=== PATIENT | female | born 1945 | race Caucasian/White ===

== ENCOUNTER 2019-01-31 12:58 | Emergency (ER) | payer MEDICAID | END 2019-01-31 14:48 | disposition home or self-care (01) | LOC: E/R 12:58 | DX: R00.2 Palpitations (principal); Z85.3 Personal history of malignant neoplasm of breast | CPT/HCPCS: 93005; 99283-25 ==

== ENCOUNTER 2019-02-01 06:33 | Inpatient (IN) | payer MEDICAID ==
[2019-01-28 16:47] LABS: ADD MAN DIFF? NO
[2019-01-28 16:50] LABS: WHITE BLOOD COUNT 5.9 10^3/ul (4.8-10.8)
[2019-01-28 16:50] LABS: BASOPHILS % 0.5 % (0.0-2.0); EOSINOPHILS % 0.7 % (0.0-7.0); HEMATOCRIT 40.6 % (37.0-47.0); HEMOGLOBIN 12.8 g/dl (12.0-16.0); LYMPHOCYTES # 1.8 10^3/ul (0.8-2.9); LYMPHOCYTES % 30.9 % (15.0-51.0); MEAN CORPUSCULAR HEMOGLOBIN 28.8 pg (29.0-33.0); MEAN CORPUSCULAR HGB CONC 31.5 g/dl (32.0-37.0); MEAN CORPUSCULAR VOLUME 91.2 fl (82.0-101.0); MEAN PLATELET VOLUME 10.1 fl (7.4-10.4); MONOCYTE # 0.6 10^3/ul (0.3-0.9); MONOCYTES % 9.3 % (0.0-11.0); NEUTROPHIL # 3.5 10^3/ul (1.6-7.5); NEUTROPHILS % 58.4 % (39.0-77.0); PLATELET COUNT 251 10^3/UL (140-415); RED BLOOD COUNT 4.45 10^6/ul (4.20-5.40); RED CELL DISTRIBUTION WIDTH 13.8 % (11.5-14.5)
[2019-01-28 17:07] LABS: ALANINE AMINOTRANSFERASE 15 IU/L (13-69); ALBUMIN 4.3 g/dl (3.3-4.9); ALBUMIN/GLOBULIN RATIO 1.22; ALKALINE PHOSPHATASE 75 IU/L (42-121); ANION GAP 11 (5-13); ASPARTATE AMINO TRANSFERASE 27 IU/L (15-46); BILIRUBIN,INDIRECT 0.6 mg/dl (0-1.1); BILIRUBIN,TOTAL 0.6 mg/dl (0.2-1.3); BLOOD UREA NITROGEN 18 mg/dl (7-20); CALCIUM 9.1 mg/dl (8.4-10.2); CARBON DIOXIDE 21 mmol/L (21-31); CHLORIDE 110 mmol/L (97-110); CREATININE 0.77 mg/dl (0.44-1.00); GLUCOSE 99 mg/dl (70-220); POTASSIUM 4.2 mmol/L (3.5-5.1); SODIUM 142 mmol/L (135-144); TOTAL PROTEIN 7.8 g/dl (6.1-8.1)
[2019-01-28 17:09] LABS: INR 0.97
[2019-01-28 17:47] LABS: PARTIAL THROMBOPLASTIN TIME 37.6 Sec (23.0-35.0)
[2019-02-01] MEDS: CEFAZOLIN 2 GM/50 ML (PMX) 50 ML IVPB (06:00)
[2019-02-01] MEDS: ACETAMINOPHEN 500 MG TAB PO (07:30)
[2019-02-01] MEDS ORDERED: DESFLURANE 15 MIN (08:00)
[2019-02-01] MEDS ORDERED: MIDAZOLAM 1 MG/ML 2 ML INJ (08:20)
[2019-02-01] MEDS ORDERED: FAMOTIDINE 20 MG INJ (08:20)
[2019-02-01] MEDS ORDERED: PROPOFOL 40 ML (08:20)
[2019-02-01] MEDS ORDERED: ONDANSETRON 4 MG INJ (08:22)
[2019-02-01] MEDS ORDERED: FENTAnyl 50 MCG/ML VIAL ×2 (08:22→11:18)
[2019-02-01] MEDS ORDERED: CEFAZOLIN 1 GM INJ (08:22)
[2019-02-01] MEDS ORDERED: DIPHENHYDRAMINE 50 MG INJ IV (10:00)
[2019-02-01] MEDS ORDERED: HYDROmorphONE 1 MG/5 ML IV SYRINGE IV ×2 (10:00)
[2019-02-01] MEDS ORDERED: morphine 2 MG INJ IV ×2 (10:00)
[2019-02-01] MEDS ORDERED: LABETALOL HCL 20MG INJ IV (10:00)
[2019-02-01] MEDS ORDERED: OXYCODONE/ACETAMINOPHEN (5/325) TAB PO ×2 (10:00)
[2019-02-01] MEDS ORDERED: MEPERIDINE 25 MG INJ IV (10:00)
[2019-02-01] MEDS ORDERED: ALBUTEROL 0.083% (NEB) 2.5 MG/3 ML AMP HHN (10:00)
[2019-02-01] MEDS: ISOSULFAN BLUE 1% 5 ML INJ SC (10:12)
[2019-02-01] MEDS ORDERED: ONDANSETRON 4 MG INJ IV (11:00)
[2019-02-01] MEDS ORDERED: ACETAMINOPHEN 1000MG/100ML IV 100 ML IVPB (11:00)
[2019-02-01] MEDS ORDERED: PHENYLephrine (100 MCG/ML) 10ML SYG (11:13)
[2019-02-01] MEDS ORDERED: EPHEDrine 25 MG/5 ML SYG (11:13)
[2019-02-01] MEDS ORDERED: NEOSTIGMINE 3 MG/3 ML SYRINGE (11:21)
[2019-02-01] MEDS ORDERED: GLYCOPYRROLATE 0.4 MG INJ (11:21)
[2019-02-01] MEDS: FENTAnyl 50 MCG/ML VIAL IV ×3 (12:04→12:30)
[2019-02-01] MEDS: ONDANSETRON 4 MG INJ IV (12:04)
[2019-02-01] MEDS: HYDROmorphONE 1 MG/5 ML IV SYRINGE IV (13:11)
[2019-02-01] MEDS: D5W-0.45 NACL + KCL 20 MEQ 1,000 ML IV ×2 (15:36→18:39)
[2019-02-01] MEDS: morphine 2 MG INJ IV (15:43)
[2019-02-01] MEDS: HYDROCORTISONE 100 MG INJ IV (17:54)
[2019-02-01] MEDS ORDERED: METOCLOPRAMIDE 10 MG INJ IV (18:00)
[2019-02-01] MEDS: DIPHENHYDRAMINE 50 MG INJ IV (18:11)
[2019-02-02] MEDS: D5W-0.45 NACL + KCL 20 MEQ 1,000 ML IV ×3 (00:39→17:49)
[2019-02-02] MEDS: PANTOPRAZOLE (EC) 40 MG TAB PO (06:03)
[2019-02-02 08:03] LABS: ADD MAN DIFF? NO
[2019-02-02 08:08] LABS: BASOPHILS % 0.1 % (0.0-2.0); HEMATOCRIT 37.5 % (37.0-47.0); HEMOGLOBIN 11.8 g/dl (12.0-16.0); LYMPHOCYTES # 1.4 10^3/ul (0.8-2.9); LYMPHOCYTES % 20.8 % (15.0-51.0); MEAN CORPUSCULAR HEMOGLOBIN 28.9 pg (29.0-33.0); MEAN CORPUSCULAR HGB CONC 31.5 g/dl (32.0-37.0); MEAN CORPUSCULAR VOLUME 91.7 fl (82.0-101.0); MEAN PLATELET VOLUME 10.2 fl (7.4-10.4); MONOCYTE # 0.4 10^3/ul (0.3-0.9); MONOCYTES % 6.1 % (0.0-11.0); NEUTROPHILS % 72.7 % (39.0-77.0); PLATELET COUNT 290 10^3/UL (140-415); RED BLOOD COUNT 4.09 10^6/ul (4.20-5.40)
[2019-02-02 08:08] LABS: WHITE BLOOD COUNT 6.9 10^3/ul (4.8-10.8)
[2019-02-02 08:30] LABS: ANION GAP 6 (5-13); BLOOD UREA NITROGEN 10 mg/dl (7-20); CALCIUM 8.7 mg/dl (8.4-10.2); CARBON DIOXIDE 25 mmol/L (21-31); CHLORIDE 111 mmol/L (97-110); CREATININE 0.62 mg/dl (0.44-1.00); GLUCOSE 113 mg/dl (70-220); POTASSIUM 4.4 mmol/L (3.5-5.1); SODIUM 142 mmol/L (135-144)
[2019-02-02] MEDS: ACETAMINOPHEN 325 MG TAB PO (15:45)
[2019-02-02] MEDS: DIPHENHYDRAMINE 50 MG INJ IV ×2 (16:14→22:00)
[2019-02-02] MEDS: HYDROCORTISONE 100 MG INJ IV ×2 (17:44→23:57)
[2019-02-02] MEDS: BISACODYL (EC) 5 MG TAB PO (22:29)
[2019-02-03] MEDS: DIPHENHYDRAMINE 50 MG INJ IV ×2 (04:00→09:53)
[2019-02-03] MEDS: PANTOPRAZOLE (EC) 40 MG TAB PO (05:57)
[2019-02-03] MEDS: HYDROCORTISONE 100 MG INJ IV ×3 (05:57→13:39)
[2019-02-03 06:35] LABS: ANION GAP 5 (5-13); BLOOD UREA NITROGEN 13 mg/dl (7-20); CALCIUM 8.9 mg/dl (8.4-10.2); CARBON DIOXIDE 25 mmol/L (21-31); CHLORIDE 111 mmol/L (97-110); CREATININE 0.63 mg/dl (0.44-1.00); GLUCOSE 154 mg/dl (70-220); POTASSIUM 4.2 mmol/L (3.5-5.1); SODIUM 141 mmol/L (135-144)
== END 2019-02-03 18:50 | disposition home or self-care (01) | DRG 581 ==
LOC: SUR 06:33 → SDS 06:33 → SUR 10:58 → REC 10:59 → 2NE 13:15
PROC: 0HBU0ZZ Excision of Left Breast, Open Approach (ICD-10-PCS; principal; 2019-02-01 09:00)
PROC: 07B60ZX Excision of Left Axillary Lymphatic, Open Approach, Diagnostic (ICD-10-PCS; 2019-02-01 09:00)
DX: C50.912 Malignant neoplasm of unspecified site of left female breast (principal); K21.9 Gastro-esophageal reflux disease without esophagitis; R22.1 Localized swelling, mass and lump, neck; T45.0X5A Adverse effect of antiallergic and antiemetic drugs, initial encounter; Y92.239 Unspecified place in hospital as the place of occurrence of the external cause
CPT/HCPCS: 71045; 80048; 80053; 85025; 85610; 85730; 88307; 88331; 93005; 99283-25

== ENCOUNTER 2019-03-28 07:19 | Day surgery (SDC) | payer MEDICAID ==
[2019-03-28] MEDS ORDERED: CEFAZOLIN 2 GM/50 ML (PMX) 50 ML IVPB (08:30)
[2019-03-28] MEDS ORDERED: CEFAZOLIN 1 GM/50 ML (PMX) 50 ML IVPB (08:43)
[2019-03-28] MEDS ORDERED: LIDOCAINE 1% (MDV) 20 ML INJ (08:43)
[2019-03-28] MEDS ORDERED: HEPARIN 1000 UNITS/ML 10 ML INJ (08:43)
[2019-03-28] MEDS ORDERED: POLYMYXIN/BACITRACIN 1L IRRIG IRR (09:00)
[2019-03-28] MEDS ORDERED: FENTAnyl 50 MCG/ML VIAL (09:02)
[2019-03-28] MEDS ORDERED: MIDAZOLAM 1 MG/ML 2 ML INJ (09:02)
[2019-03-28] MEDS: OXYCODONE/ACETAMINOPHEN (5/325) TAB PO (12:01)
== END 2019-03-28 12:47 | disposition home or self-care (01) ==
LOC: SDS 07:19
DX: C50.912 Malignant neoplasm of unspecified site of left female breast (principal)
CPT/HCPCS: 36561

== ENCOUNTER 2019-04-01 15:23 | Emergency (ER) | payer MEDICAID ==
[2019-04-01 18:33] LABS: ADD MAN DIFF? NO
[2019-04-01 18:34] LABS: WHITE BLOOD COUNT 7.3 10^3/ul (4.8-10.8)
[2019-04-01 18:34] LABS: BASOPHILS % 0.4 % (0.0-2.0); EOSINOPHILS # 0.1 10^3/ul (0.0-0.5); EOSINOPHILS % 1.2 % (0.0-7.0); HEMATOCRIT 37.9 % (37.0-47.0); HEMOGLOBIN 12.5 g/dl (12.0-16.0); LYMPHOCYTES % 27.8 % (15.0-51.0); MEAN CORPUSCULAR HEMOGLOBIN 29.3 pg (29.0-33.0); MEAN PLATELET VOLUME 9.3 fl (7.4-10.4); MONOCYTE # 0.6 10^3/ul (0.3-0.9); MONOCYTES % 7.9 % (0.0-11.0); NEUTROPHIL # 4.5 10^3/ul (1.6-7.5); NEUTROPHILS % 62.6 % (39.0-77.0); PLATELET COUNT 289 10^3/UL (140-415); RED BLOOD COUNT 4.26 10^6/ul (4.20-5.40); RED CELL DISTRIBUTION WIDTH 13.7 % (11.5-14.5)
[2019-04-01 18:59] LABS: ANION GAP 9 (5-13); BLOOD UREA NITROGEN 17 mg/dl (7-20); CALCIUM 9.6 mg/dl (8.4-10.2); CARBON DIOXIDE 23 mmol/L (21-31); CHLORIDE 107 mmol/L (97-110); CREATININE 0.63 mg/dl (0.44-1.00); GLUCOSE 102 mg/dl (70-220); POTASSIUM 4.1 mmol/L (3.5-5.1); SODIUM 139 mmol/L (135-144)
[2019-04-01] MEDS: HYDROCODONE/APAP (5/325) TAB PO (19:26)
== END 2019-04-01 19:48 | disposition home or self-care (01) ==
LOC: E/R 15:23
DX: G89.18 Other acute postprocedural pain (principal); C50.912 Malignant neoplasm of unspecified site of left female breast
CPT/HCPCS: 71045; 80048; 85025; 99284-25